=== PATIENT | female | born 1950 | race Caucasian/White ===

== ENCOUNTER 2017-01-19 22:22 | Inpatient (IN) | payer MEDICARE ==
[~2017-01-19] VITALS: Ht 167.6 cm; Wt 49.8 kg
[~2017-01-19 22:22] MED LIST: CHILD ASA81 MG PO; CIPROFLOXACN500 MG PO; GLUCOTROL EXTE2.5 M1 PO; LISINOPRIL5 MG PO; LOVASTATIN10 M1 PO; METFORMIN1000 MG PO; METFORMIN500 MG PO; PRAVASTATIN SOD10 MG PO
--- NOTE | 2017-01-19 22:50 | NUR ---
A/O F WITH STATED WEAKNESS NO FEELING WELL TODAY HX OF DIARRHEA YESTERDAY SELF MEDICATED WITH OTC MED WHICH RESOLVED D.PT'S TONGUE IS PINK AND DRY.DENIES PAIN NO DYSURIAS.
--- NOTE | 2017-01-19 23:20 | NUR ---
PT WAS WEAK WHEN ASSISTED BY NURSE TO BSC.PT VOIDED 300CC CLEAR YELLOW URINE
[2017-01-19 23:55] LABS: HEMATOCRIT 47.4 % (37.0-47.0); HEMOGLOBIN 14.7 g/dl (12.0-16.0); IMMATURE GRANULOCYTES 0.7 % (0.0-1.0); MEAN CELL VOLUME 88.8 fL CALC (80.0-100.0); MEAN CORPUSCULAR HGB 27.5 pG CALC (26.0-32.0); NEUT# 8.04 thou/uL (2.00-7.15); RED BLOOD COUNT 5.34 mill/uL (4.20-5.60); RED CELL DISTRI WIDTH 15.9 % (11.5-15.5)
[2017-01-20] VITALS (19 sets, daily range): BP systolic 90–152; BP diastolic 38–80
[2017-01-20 00:40] LABS: ALBUMIN 4.7 g/dL (3.2-5.0); ALKALINE PHOSPHATASE 96 u/l (38-126); ANION GAP 35 (6-22 (CALC)); BILIRUBIN, TOTAL 0.5 mg/dL (0.0-1.4); BUN 22 mg/dL (8-23); BUN/CREATININE RATIO 29 (12-20 (CALC)); CALCIUM 10.5 mg/dL (8.4-10.2); CHLORIDE 99 mmol/l (95-108); CREATININE 0.7 mg/dL (0.5-1.0); GFR > 60 ML/MIN (>=60 (CALC)); GFR FOR AFR.AMER. > 60 ML/MIN (>=60 (CALC)); POTASSIUM 4.6 mmol/l (3.5-5.1); SGOT/AST 14 u/l (9-36); SGPT/ALT 20 u/l (11-66); SODIUM 135 mmol/l (137-146); TOTAL PROTEIN 8.6 g/dL (6.3-8.2)
--- NOTE | 2017-01-20 00:40 | NUR ---
DR NOTIFIED OF CRITICAL LABS GLUCOSE 466/CO2 6.
[2017-01-20 00:43] LABS: CARBON DIOXIDE 6 mmol/l (22-30); GLUCOSE 466 mg/dL (82-115)
[2017-01-20 00:52] LABS: MYOGLOBIN 36 ng/mL (0 - 62)
--- NOTE | 2017-01-20 02:15 | NUR ---
PHONE REPORT TO NURSE ORTIZ IN ICU
--- NOTE | 2017-01-20 02:45 | NUR ---
FROM ER TO ICU BED7 VIA STRETCHER AND SENIOR IT ENGINEER, ON ROOM AIR, ACCOMPANIED BY Zora DARBY. PT ALERT AND ORIENTED X3; DENIES PAIN OR SOB, RESP EVEN AND UNLABORED, NO DISTRESS NOTED, ON INSULIN DRIP AT 4 UNITS/HR AND NS WITH BICARB AT 100 ML/HR, FAMILY AT BEDSIDE, ASSESSMENT COMPLETED AT THIS TIME, SEE INTERVENTIONS FOR DETAILS, SR ON MONITOR WITH FREQ PVC'S, HR 88, AFEBRILE, BP 123/54, SPO2 99% ON ROOM AIR, LUNGS ARE CLEAR ON AUSCULTATION, ABD IS SOFT WITH ACTIVE BS X4 QUAD, NO SKIN ISSUES OR EDEMA NOTED, WEAK PEDAL/RADIAL AND PAPER STACKER, JUAN HOSE ARE IN PLACE, EXPLAINED PLAN OF CARE, MED SCHEDULE, LABS, AND SAFETY MEASURES, PT VOICES UNDERSTANDING, CALL MORAN IS AT REACH, WILL CONTINUE TO MONITOR.
[2017-01-20 04:01] LABS: URINE BLOOD DIPSTICK TRACE-INTACT (NEGATIVE); URINE CLARITY CLEAR; URINE COLOR YELLOW; URINE GLUCOSE - DIPSTICK 500 mg/dL (NEGATIVE); URINE KETONE >=80 mg/dL (NEGATIVE); URINE LEUK ESTERASE NEGATIVE (NEGATIVE); URINE NITRITE - DIPSTICK NEGATIVE (Negative); URINE PH 5.5 (4.5-8.0); URINE PROTEIN - DIPSTICK 30 mg/dL (NEG-TRACE); URINE SPECIFIC GRAVITY 1.025; URINE UROBILINOGEN - DIPSTICK 0.2 E.U./dL (0.2)
[2017-01-20 04:03] LABS: URINE BILIRUBIN - DIPSTICK NEGATIVE (NEGATIVE)
[2017-01-20 04:05] LABS: BARBITURATES NEGATIVE (NEGATIVE); COCAINE NEGATIVE (NEGATIVE); METHADONE NEGATIVE (NEGATIVE); OXCYCODONE NEGATIVE (NEGATIVE); TETRAHYDROCANNABIONOL NEGATIVE (NEGATIVE); TRICYLIC ANTIDEPRESSANTS NEGATIVE (NEGATIVE)
[2017-01-20 04:07] LABS: URINE BACTERIA FEW hpf; URINE FINE GRAN CAST FEW lpf; URINE HYALINE CAST FEW lpf (NONE-RARE); URINE MUCUS FEW hpf (NONE-FEW); URINE RBC 0-2 RBC/hpf (0-5); URINE SQUAMOUS EPITHELIAL CELL MODERATE EPI/hpf (0-FEW); URINE WBC 0-2 WBC/hpf (0-5)
--- NOTE | 2017-01-20 04:48 | NUR ---
ASSISTED PT WITH BEDPAN, VOIDED 100ML OF CLEAR YELLOW URINE, NO BM NOTED, PT REFUSED TO USE BS, STATES "I FEEL WEAK." DENIES PAIN OR N/V, NO DIZZINES OR LIGHTHEADEDNESS VOICED, NO DISTRESS NOTED, HESITANT TO ANSWER QUESTIONS SINCE ADMISSION WITH GARBLE SPEECH, NO NEURO DEFICITS NOTED AT THIS TIME, INSULIN DRIP INFUSING PER PROTOCOL WITH NS AT 100 ML/HR, RESP ARE EVEN AND UNLABORED, PT APPEAR PALE, SKIN IS DRY AND WARM, DRY TONGUE NOTED, PT ASKING FOR WATER, PROVIDED ICE CHIPS, SR ON MONITOR, HR 71 WITH FREQ PVC'S, BP 134/56, SPO2 99% ON ROOM AIR, SAFETY MEASURES CONTINUE, CALL MORAN AT REACH, WILL CONTINUE TO MONITOR. PT TOLERATED ACTIVITY WELL.
--- NOTE | 2017-01-20 05:20 | NUR ---
NOTIFIED DR. WAGONER ABOUT ACCU CHECK/FINGERSTICK 188. LAB TENCH DRAWING LABS NOW.
--- NOTE | 2017-01-20 06:00 | NUR ---
FINGER STICK ACCU CHECK 121; INSULIN DRIP TITRATED TO 1 ML/HR WITH D5 1/2NS AT 150ML/HR, PT DENIES PAIN N/V OR DIZZINES AT THIS TIME, NO DISTRESS NOTED, VSS, AFEBRILE, WAITING FOR LAB RESULTS, WILL CONTINUE TO MONITOR.
[2017-01-20 06:11] LABS: ALBUMIN 3.7 g/dL (3.2-5.0); ALKALINE PHOSPHATASE 75 u/l (38-126); ANION GAP 16 (6-22 (CALC)); BILIRUBIN, TOTAL 0.4 mg/dL (0.0-1.4); BUN 20 mg/dL (8-23); BUN/CREATININE RATIO 36 (12-20 (CALC)); CALCIUM 9.8 mg/dL (8.4-10.2); CARBON DIOXIDE 21 mmol/l (22-30); CHLORIDE 106 mmol/l (95-108); CREATININE 0.6 mg/dL (0.5-1.0); GFR > 60 ML/MIN (>=60 (CALC)); GFR FOR AFR.AMER. > 60 ML/MIN (>=60 (CALC)); GLUCOSE 127 mg/dL (82-115); POTASSIUM 3.7 mmol/l (3.5-5.1); SGOT/AST 11 u/l (9-36); SGPT/ALT 31 u/l (11-66); SODIUM 140 mmol/l (137-146); TOTAL PROTEIN 6.9 g/dL (6.3-8.2)
--- NOTE | 2017-01-20 06:21 | NUR ---
NOTIFIED DR. WAGONER OF ANION GAP 16, WAITING FOR NEW ORDERS.
--- NOTE | 2017-01-20 06:45 | NUR ---
REPORT RECEIVED FROM MEHNAZ ORTIZ. PT RESTING WITH EYES CLOSED VSS, NO DISTRESS NOTED. CALL LIGHT WITHIN REACH. WILL CONTINUE TO MONITOR.
--- NOTE | 2017-01-20 09:40 | NUR ---
INSULIN DRIP TURNED OFF AT THIS TIME. PT RESTING, EDUCATED AGAIN ON MEDICATION AND SCHEDULE. PT STATES UNDERSTANDING. WILL CONTINUE TO RE-ASSESS IF NEEDED. ROOM DARKENED FOR PT REQUEST TO SLEEP.
[2017-01-20 10:00] LABS: ALBUMIN 3.2 g/dL (3.2-5.0); ALKALINE PHOSPHATASE 69 u/l (38-126); ANION GAP 18 (6-22 (CALC)); BILIRUBIN, TOTAL 0.3 mg/dL (0.0-1.4); BUN 18 mg/dL (8-23); BUN/CREATININE RATIO 34 (12-20 (CALC)); CALCIUM 9.1 mg/dL (8.4-10.2); CARBON DIOXIDE 19 mmol/l (22-30); CHLORIDE 104 mmol/l (95-108); CREATININE 0.5 mg/dL (0.5-1.0); GFR > 60 ML/MIN (>=60 (CALC)); GFR FOR AFR.AMER. > 60 ML/MIN (>=60 (CALC)); GLUCOSE 226 mg/dL (82-115); POTASSIUM 3.6 mmol/l (3.5-5.1); SGOT/AST 9 u/l (9-36); SGPT/ALT 27 u/l (11-66); SODIUM 137 mmol/l (137-146); TOTAL PROTEIN 6.1 g/dL (6.3-8.2)
--- NOTE | 2017-01-20 13:15 | NUR ---
REPORT GIVEN TO MEHNAZ STUBBS. PT TRANSFERRED TO ROOM 279. PT FAMILY IN ROOM AT THIS TIME.
--- NOTE | 2017-01-20 13:30 | NUR ---
PT TO ROOM VIA WC ACCOMPANIED BY STAFF AND FAMILY; PT MODERATE ASSIST TO BED; PT ORIENTED TO ROOM AND CALL SYSTEM; NO COMPLAINTS VOICED; CALL MORAN WITHIN REACH; WILL CONTINUE TO MONITOR.
--- NOTE | 2017-01-20 15:30 | NUR ---
PT RESTING WITH EYES CLOSED; NO S/SX OF DISTRESS NOTED; FAMILY AT BEDSIDE; CALL MORAN WITHIN REACH; WILL CONTINUE TO MONITOR.
--- NOTE | 2017-01-20 18:00 | NUR ---
PT AROUSED EASILY TO VERBAL STIMULI; ASSISTED WITH DINNER SET UP BY FAMILY; TELE MONITOR IN PLACE; CALL MORAN WITHIN REACH; WILL CONTINUE TO MONITOR.
--- NOTE | 2017-01-20 19:55 | NUR ---
PT APPEARS TO BE SLEEPING WITH EYES CLOSED, FAMILY AT BEDSIDE, AROUSES TO STIMULI, A/O X3, OFFERS NO COMPLAINTS AT THIS TIME, NO DISTRESS NOTED, ENCOURAGED TO CALL IF NEEDED, EXPLAINED PLAN OF CARE AND SAFETY MEASURES, WILL FOLLOW UP WITH MED SCHEDULE, ANSWERED FAMILY QUESTIONS ABOUT PT CARE, MEDS, AND LABS, VERBALIZED UNDERSTANDING, WILL CONTINUE TO MONITOR.
--- NOTE | 2017-01-21 00:10 | NUR ---
PT RESTING IN BED WITH EYES CLOSED, A/O X3, DENIES PAIN OR N/V OR OTHER DISCOMFORT, RESP ARE UNLABORED, OFFERED PO FLUIDS AND TOILETING, DENIES NEEDS AT THIS TIME, BED SIDE TABLE AT REACH WITH FRESH WATER, BSC AT BEDSIDE, ENCOURAGEDT TO CALL IF NEEDED, WILL CONTINUE TO MONITOR. PT IS ON TELE MONITORING. IV SITE IS PATENT, NO REDENSS OR EDEMA NOTED, FLUSHES WELL.
[2017-01-21 01:57] VITALS: BP 113/66
[2017-01-21 04:25] VITALS: BP 128/69
[2017-01-21 05:38] LABS: ANION GAP 15 (6-22 (CALC)); BUN 15 mg/dL (8-23); BUN/CREATININE RATIO 33 (12-20 (CALC)); CALCIUM 9.6 mg/dL (8.4-10.2); CARBON DIOXIDE 23 mmol/l (22-30); CHLORIDE 104 mmol/l (95-108); CREATININE 0.4 mg/dL (0.5-1.0); GFR > 60 ML/MIN (>=60 (CALC)); GFR FOR AFR.AMER. > 60 ML/MIN (>=60 (CALC)); GLUCOSE 227 mg/dL (82-115); SODIUM 137 mmol/l (137-146)
[2017-01-21 05:49] LABS: HEMATOCRIT 40.6 % (37.0-47.0); HEMOGLOBIN 13.4 g/dl (12.0-16.0); MEAN CELL VOLUME 84.8 fL CALC (80.0-100.0); RED BLOOD COUNT 4.79 mill/uL (4.20-5.60); RED CELL DISTRI WIDTH 15.6 % (11.5-15.5)
--- NOTE | 2017-01-21 06:00 | NUR ---
PT ASSISTED PT TO BSC, TOLERATED ACTIVITY WELL, DENIES PAIN OR NEEDS AT THIS TIME, RESP ARE EVEN AND UNLABORED, UNSTEADY GAIT NOTED, CALL MORAN IS AT REACH, WILL CONTINUE TO MONITOR.
[2017-01-21 07:27] VITALS: BP 130/55
--- NOTE | 2017-01-21 07:28 | NUR ---
BEDSIDE REPORT RECEIVED FROM MEHNAZ ORTIZ. PT SUPINE. DENIES PAIN. REPORTING OF CONCERNS ENCOURAGED. PLAN OF CARE DISCUSSED. CALL LIGHT REVIEWED AND IN REACH. PT STATES UNDERSTANDING.
[2017-01-21] MEDS ORDERED: LEVEMIR100 UNIT/M SC (09:33)
--- NOTE | 2017-01-21 11:28 | NUR ---
PT INSTRUCTED ON DRAWING UP INSULIN, RETURN DEMONSTRATION COMPLETED. PT AND FAMILY EDUCATED ON LEVEMIR INSULIN, S/S HYPERGLYCEMIA, HYPOGLYCEMIA, AND BLOOD SUGAR MONITORING. PT INSTRUCTED TO KEEP LOG OF BLOOD SUGARS FOR PRIMARY CARE PHYSICIAN AND OWN USE. PT STATES UNDERSTANDING.
[2017-01-21 11:41] VITALS: BP 98/51
--- NOTE | 2017-01-21 12:29 | NUR ---
Discharge instructions given. Patient verbalizes understanding of same. Discharged in stable condition via Wheelchair to Home with family. All belongings sent with pt.
== END 2017-01-21 12:22 | disposition home or self-care (01) | DRG 639 ==
LOC: ED 22:22 → ED-I 01-20 01:10 → ED 01-20 01:45 → ICU 01-20 01:46 → MS2 01-20 01:46
PROVIDERS: Emergency Medicine; Internal Medicine; Nurse Practitioner Family; ADMIT Internal Medicine; ATTEND Internal Medicine
DX: E13.10 Other specified diabetes mellitus with ketoacidosis without coma (principal); I10 Essential (primary) hypertension; E78.5 Hyperlipidemia, unspecified; Z91.14 Patient's other noncompliance with medication regimen; Z79.84 Long term (current) use of oral hypoglycemic drugs

== ENCOUNTER 2017-08-12 18:41 | Emergency (ER) | payer MEDICARE ==
[~2017-08-12] VITALS: Ht 167.6 cm; Wt 116.0 kg
[~2017-08-12 18:41] MED LIST changes: +ALENDRONATE70 MG PO; +LEVEMIR100 UNIT/M SC; +LIPITOR10 M1 PO; +LISINOPRIL2.5 MG PO; +MULTIVITAMI1 PO; +TRESIBA SC
[2017-08-12 20:17] LABS: HEMATOCRIT 35.1 % (37.0-47.0); HEMOGLOBIN 11.2 g/dl (12.0-16.0); IMMATURE GRANULOCYTES 0.3 % (0.0-1.0); MEAN CELL VOLUME 83.4 fL CALC (80.0-100.0); MEAN CORPUSCULAR HGB 26.6 pG CALC (26.0-32.0); MEAN CORPUSCULAR HGB CONC 31.9 g/L CALC (32.0-36.0); NEUT# 8.04 thou/uL (2.00-7.15); RED BLOOD COUNT 4.21 mill/uL (4.20-5.60)
[2017-08-12 20:56] LABS: URINE BILIRUBIN - DIPSTICK NEGATIVE (NEGATIVE); URINE BLOOD DIPSTICK SMALL (NEGATIVE); URINE CLARITY CLEAR; URINE COLOR YELLOW; URINE GLUCOSE - DIPSTICK NEGATIVE (NEGATIVE); URINE KETONE 15 mg/dL (NEGATIVE); URINE LEUK ESTERASE NEGATIVE (NEGATIVE); URINE NITRITE - DIPSTICK NEGATIVE (Negative); URINE PROTEIN - DIPSTICK 100 mg/dL (NEG-TRACE); URINE SPECIFIC GRAVITY 1.025; URINE UROBILINOGEN - DIPSTICK 0.2 E.U./dL (0.2)
[2017-08-12 20:59] LABS: ALBUMIN 3.6 g/dL (3.2-5.0); ALKALINE PHOSPHATASE 90 u/l (38-126); ANION GAP 17 (6-22 (CALC)); BILIRUBIN, TOTAL 0.3 mg/dL (0.0-1.4); BUN 11 mg/dL (8-23); CARBON DIOXIDE 23 mmol/l (22-30); CHLORIDE 107 mmol/l (95-108); POTASSIUM 3.9 mmol/l (3.5-5.1); SGOT/AST 36 u/l (9-36); SGPT/ALT 30 u/l (11-66); SODIUM 142 mmol/l (137-146); TOTAL PROTEIN 6.6 g/dL (6.3-8.2)
[2017-08-12 21:03] LABS: ACT PARTIAL THROMBO TIME 28.7 SECONDS (20.0-32.5); PROTHROMBIN TIME 11.1 SECONDS (9.0-12.5)
[2017-08-12 21:08] LABS: URINE SQUAMOUS EPITHELIAL CELL FEW EPI/hpf (0-FEW)
[2017-08-12 21:10] LABS: BUN/CREATININE RATIO 28 (12-20 (CALC)); CREATININE 0.4 mg/dL (0.5-1.0); GFR > 60 ML/MIN (>=60 (CALC)); GFR FOR AFR.AMER. > 60 ML/MIN (>=60 (CALC))
[2017-08-12 21:12] LABS: MYOGLOBIN 222 ng/mL (0 - 62)
[2017-08-12 23:16] VITALS: BP 154/72
== END 2017-08-12 23:23 | disposition short-term general hospital (02) ==
LOC: ED 18:41
PROVIDERS: Emergency Medicine
PROC: 0T9B70Z Drainage of Bladder with Drainage Device, Via Natural or Artificial Opening (ICD-10-PCS; principal; 2017-08-12)
DX: I63.9 Cerebral infarction, unspecified (principal); R29.704 NIHSS score 4; R53.1 Weakness

== ENCOUNTER 2021-02-28 17:46 | Emergency (ER) | payer MEDICARE ==
[~2021-02-28] VITALS: Ht 167.6 cm; Wt 72.0 kg
[2021-02-28 18:56] LABS: HEMATOCRIT 39.5 % (37.0-47.0); HEMOGLOBIN 12.5 g/dl (12.0-16.0); IMMATURE GRANULOCYTES 0.1 % (0.0-5.0); MEAN CELL VOLUME 88.2 fL CALC (80.0-100.0); MEAN CORPUSCULAR HGB 27.9 pG CALC (26.0-32.0); MEAN CORPUSCULAR HGB CONC 31.6 g/dL CAL (32.0-36.0); NEUT# 7.51 thou/uL (2.00-7.15); RED BLOOD COUNT 4.48 mill/uL (4.20-5.60); RED CELL DISTRI WIDTH 16.9 % (11.5-15.5)
[2021-02-28 19:12] LABS: ALBUMIN 3.9 g/dL (3.2-5.0); ALKALINE PHOSPHATASE 105 u/l (38-126); ANION GAP 11 (6-22 (CALC)); BUN 32 mg/dL (8-23); BUN/CREATININE RATIO 45 (12-20 (CALC)); CARBON DIOXIDE 29 mmol/l (22-30); CHLORIDE 101 mmol/l (95-108); CREATININE 0.7 mg/dL (0.5-1.0); GFR > 60 ML/MIN (>=60 (CALC)); GFR FOR AFR.AMER. > 60 ML/MIN (>=60 (CALC)); SGOT/AST 37 u/l (9-36); SODIUM 137 mmol/l (137-146)
[2021-02-28 19:13] LABS: BILIRUBIN, TOTAL 0.5 mg/dL (0.0-1.4)
[2021-02-28 20:11] VITALS: BP 143/67
== END 2021-02-28 20:10 | disposition short-term general hospital (02) ==
LOC: ED 17:46
PROVIDERS: Family Medicine
PROC: 0T9B70Z Drainage of Bladder with Drainage Device, Via Natural or Artificial Opening (ICD-10-PCS; principal; 2021-02-28)
DX: S72.142A Displaced intertrochanteric fracture of left femur, initial encounter for closed fracture (principal); E11.9 Type 2 diabetes mellitus without complications; W19.XXXA Unspecified fall, initial encounter; Z79.84 Long term (current) use of oral hypoglycemic drugs

== ENCOUNTER 2023-06-25 16:17 | Emergency (ER) | payer MEDICARE, MEDICAID ==
[~2023-06-25] VITALS: Ht 167.6 cm; Wt 50.7 kg
[2023-06-25 17:11] VITALS: BP 168/77
[2023-06-25 17:32] VITALS: BP 147/67
[2023-06-25 17:36] LABS: BASO% 0.7 % (0-3); EOS% 3.5 % (0-8); HEMOGLOBIN 13.2 g/dl (12.0-16.0); IMMATURE GRANULOCYTES 0.4 % (0.0-5.0); LYMPH% 21.2 % (15-41); MEAN CELL VOLUME 88.4 fL CALC (80.0-100.0); MEAN CORPUSCULAR HGB 28.4 pG CALC (26.0-32.0); MEAN CORPUSCULAR HGB CONC 32.2 g/dL CAL (32.0-36.0); MONO% 9.9 % (2-13); NEUT# 4.9 thou/uL (2.00-7.15); NEUT% 64.3 % (42-76); RED BLOOD COUNT 4.64 mill/uL (4.20-5.60); RED CELL DISTRI WIDTH 14.4 % (11.5-15.5)
[2023-06-25 18:00] VITALS: BP 135/67
[2023-06-25 18:08] LABS: ALBUMIN 4.2 g/dL (3.2-5.0); ALKALINE PHOSPHATASE 81 u/l (38-126); ANION GAP 16 (6-22 (CALC)); BILIRUBIN, TOTAL 0.4 mg/dL (0.02-1.3); BUN 42 mg/dL (8-23); BUN/CREATININE RATIO 78 (12-20 (CALC)); CARBON DIOXIDE 24 mmol/l (22-30); CHLORIDE 96 mmol/l (95-108); CREATININE 0.5 mg/dL (0.5-1.0); GFR FOR AFR.AMER. > 60 ML/MIN (>=60 (CALC)); GFR OTHER RACES > 60 ML/MIN (>=60 (CALC)); POTASSIUM 4.5 mmol/l (3.5-5.1); SGOT/AST 40 u/l (9-36); SODIUM 131 mmol/l (137-146); TOTAL PROTEIN 7.7 g/dL (6.3-8.2)
[2023-06-25 18:30] VITALS: BP 154/70
[2023-06-25 19:00] VITALS: BP 147/77
[2023-06-25 19:03] VITALS: BP 147/77
== END 2023-06-25 19:32 | disposition home or self-care (01) ==
LOC: ED 16:17
PROVIDERS: Family Medicine
DX: E11.65 Type 2 diabetes mellitus with hyperglycemia (principal); Z79.84 Long term (current) use of oral hypoglycemic drugs

== ENCOUNTER 2024-06-05 16:56 | Observation (INO) | payer MEDICARE, MEDICAID ==
[~2024-06-05] VITALS: Ht 167.6 cm; Wt 51.9 kg
[2024-06-05] VITALS (24 sets, daily range): BP systolic 126–203; BP diastolic 50–88
[~2024-06-05 16:56] MED LIST changes: +LEVOFLOXACIN500MG PO
--- NOTE | 2024-06-05 16:56 | NUR ---
PT TO ER ROOM 2 VIA EMS.
[2024-06-05] MEDS ORDERED: ISOVUE-300 (Iopamidol) 100 ML SDV IV ONE (17:05)
[2024-06-05] MEDS ORDERED: SODIUM CHLORIDE 0.9% 1,000 ML IV ONE (17:05)
[2024-06-05 17:30] LABS: BASO% 0.2 % (0-3); EOS% 0.4 % (0-8); HEMATOCRIT 44.4 % (37.0-47.0); HEMOGLOBIN 13.9 g/dl (12.0-16.0); IMMATURE GRANULOCYTES 0.1 % (0.0-5.0); LYMPH% 6.9 % (15-41); MEAN CELL VOLUME 89.7 fL CALC (80.0-100.0); MEAN CORPUSCULAR HGB 28.1 pG CALC (26.0-32.0); MEAN CORPUSCULAR HGB CONC 31.3 g/dL CAL (32.0-36.0); NEUT# 11.64 thou/uL (2.00-7.15); NEUT% 82.4 % (42-76); RED BLOOD COUNT 4.95 mill/uL (4.20-5.60); RED CELL DISTRI WIDTH 14.1 % (11.5-15.5)
[2024-06-05 17:45] LABS: ALBUMIN 4.3 g/dL (3.2-5.0); BILIRUBIN, TOTAL 0.4 mg/dL (0.02-1.3); CREATININE 0.6 mg/dL (0.5-1.0); POTASSIUM 3.8 mmol/l (3.5-5.1); TOTAL PROTEIN 8.2 g/dL (6.3-8.2)
--- NOTE | 2024-06-05 18:46 | NUR ---
PATIENT RETURNS FROM RADIOLOGY, DAUGHTER REMAINS BEDSIDE
--- NOTE | 2024-06-05 19:00 | NUR ---
REPORT RECEIVED FROM MEHNAZ ZIMMER AND CARE RESUMED BY THIS NURSE AT THIS TIME. CALL LIGHT WITHIN REACH AND PT AWAITING RESULTS. DAUGHTER AT BEDSIDE.
--- NOTE | 2024-06-05 20:00 | NUR ---
STRAIGHT CATH COMPLETED AND URINE COLLECTED. PT TOLERATED WELL. CALL LIGHT WITHIN REACH.
[2024-06-05 20:52] LABS: URINE BILIRUBIN - DIPSTICK Negative (NEGATIVE); URINE BLOOD DIPSTICK Negative (NEGATIVE); URINE GLUCOSE - DIPSTICK Negative (NEGATIVE); URINE KETONE Negative (NEGATIVE); URINE LEUK ESTERASE Negative (NEGATIVE); URINE NITRITE - DIPSTICK Negative (Negative); URINE PROTEIN - DIPSTICK >=300 mg/dL (NEG-TRACE); URINE SPECIFIC GRAVITY 1.015; URINE UROBILINOGEN - DIPSTICK 0.2 E.U./dL (0.2)
[2024-06-05 20:53] LABS: URINE COLOR Straw
[2024-06-05 21:00] LABS: URINE TRANSITIONAL EPI. CELLS FEW hpf
--- NOTE | 2024-06-05 21:09 | NUR ---
PT SITTING IN RM AWAITING RESULTS AT THIS TIME. CALL LIGHT WITHIN REACH AND PT HAS NO NEEDS OR CONCERNS AT THIS TIME.
[2024-06-05] MEDS ORDERED: MORPHINE SULFATE 4 MG/ML VIAL IV ONE (21:25)
--- NOTE | 2024-06-05 22:15 | NUR ---
PT SITTING IN RM AWAITING ADMIT AT THIS TIME. CALL LIGHT WITHIN REACH AND PT HAS NO NEEDS OR CONCERNS AT THIS TIME.
--- NOTE | 2024-06-05 23:19 | NUR ---
PT RESTING IN RM AWAITING ADMIT AT THIS TIME. CALL LIGHT WITHIN REACH AND PT HAS NO NEEDS OR CONCERNS AT THIS TIME.
[2024-06-06] VITALS (14 sets, daily range): BP systolic 139–187; BP diastolic 53–80
--- NOTE | 2024-06-06 00:55 | NUR ---
GAVE REPORT TO MEHNAZ COLE AND PT TO BE TRANSPORTED TO MED SURG RM 270. CALL LIGHT WITHIN REACH AND PT HAS NO NEEDS OR CONCERNS.
[2024-06-06] MEDS ORDERED: CLARIFY DOSE PO PRN (01:10)
--- NOTE | 2024-06-06 01:15 | NUR ---
Admission Note Report Given to: MEHNAZ COLE Transported by: Wheelchair X Stretcher Transported with: X Nurse Transporter X Patent IV O2 First Sampler Location: ICU X MS2
[2024-06-06] MEDS ORDERED: oxyCODONE HCL 5 MG/TAB PO PRN (01:30)
--- NOTE | 2024-06-06 02:55 | NUR ---
RECEIVED REPORT FROM NURSE ED NURSE DOUG, TRANSPORTED VIA BED, ARRIVE MS UNIT AT 0120, PATIENT IS ALERT ORIENTED X 3 ABLE TO MAKE NEEDS KNOWN, STATED PAIN RELIEF FROM PREVIOUS MED GIVEN, PATINET HAD A LARGE INCONTINENCE OF URINE, PERICARE PROVIDED, NOTED PROLAPSE VAGINA, PATIENT STATED HAD A PROLAPSE, SCD IN PLACED, HEELS OFFLOADED, CALL LIGHT IN REACHED, BED ALARM IN PLACED, ADMISSION ASSESSMENT COMPLETED.
--- NOTE | 2024-06-06 05:13 | NUR ---
PATIENT NOT IN DISTRESS, BREATHING UNLABORED,SCD AND BED ALARM IN PLACED.
[2024-06-06] MEDS ORDERED: ACETAMINOPHEN 500 MG TAB PO SCH (06:00)
[2024-06-06] MEDS ORDERED: DOXYCYCLINE HYCLATE 100 MG in SODIUM CHLORIDE 0.9% 100 ML IV SCH (09:00)
[2024-06-06] MEDS ORDERED: DEXTROSE 250 ML IV PRN (14:00)
[2024-06-06] MEDS ORDERED: LISINOPRIL 2.5 MG TAB PO SCH (15:00)
[2024-06-06] MEDS ORDERED: INSULIN LISPRO 100 UNITS/ML ML SC SCH (17:00)
--- NOTE | 2024-06-06 20:00 | NUR ---
RECEIVED REPORT FROM DAY NURSE, PATIENT AWAKE, FAMILY IN ROOM, ALERT ORIENTED, C/O HEADACHE, WILL MEDICATE, PATINET IV ON RAC PATENT FLSUHES WELL, BREATHING UNLABORED, EDUCATED ON THE PLAN TO DO ULTRASOUND ABDOMEN TOMORROW AND THE PREPARATION, PATIENT VERBALIZED UNDERSTANING, SCD IN PLACED, CALL LIGHTIN REACHED, BED ALARM IN PLACED.
--- NOTE | 2024-06-07 | NUR ---
PATIENT NOW NPO, FOOD AND FLUID REMOVED AT BEDSIDE, PATIENT TURNED REPOSITIOND RT SIDE, CALL LIGHT IN REACHED, BED ALARM IN PLACED.
[2024-06-07 05:15] VITALS: BP 150/71
[2024-06-07 05:34] LABS: BASO% 0.4 % (0-3); EOS% 1.2 % (0-8); HEMATOCRIT 41.1 % (37.0-47.0); HEMOGLOBIN 13.1 g/dl (12.0-16.0); IMMATURE GRANULOCYTES 0.2 % (0.0-5.0); LYMPH% 19.5 % (15-41); MEAN CELL VOLUME 90.3 fL CALC (80.0-100.0); MEAN CORPUSCULAR HGB 28.8 pG CALC (26.0-32.0); MEAN CORPUSCULAR HGB CONC 31.9 g/dL CAL (32.0-36.0); MONO% 13.3 % (2-13); NEUT# 6.38 thou/uL (2.00-7.15); NEUT% 65.4 % (42-76); RED BLOOD COUNT 4.55 mill/uL (4.20-5.60); RED CELL DISTRI WIDTH 14.4 % (11.5-15.5)
[2024-06-07 05:41] VITALS: BP 150/71
[2024-06-07 05:46] LABS: BILIRUBIN, TOTAL 0.5 mg/dL (0.02-1.3); CREATININE 0.6 mg/dL (0.5-1.0); MAGNESIUM 1.8 mg/dL (1.6-2.3); POTASSIUM 4.1 mmol/l (3.5-5.1)
[2024-06-07 05:49] LABS: TOTAL PROTEIN 6.3 g/dL (6.3-8.2)
--- NOTE | 2024-06-07 06:03 | NUR ---
PATIENT HAD A LARGE INCONTINENCE OF URINE, INCONTINENT CARE PROVIDE, PATIENT REPOSITIONED, CALL LIGHT IN REACHED, BED ALARM IN PLACED.
[2024-06-07 07:27] VITALS: BP 123/51
--- NOTE | 2024-06-07 07:45 | NUR ---
PT ASSISTED FROM THE BED TO THE , PT TRANSPORTED TO ULTRASOUND
--- NOTE | 2024-06-07 08:10 | NUR ---
PT RETURNED TO THE UNIT FROM ULTRASOUND VIA WC, PT ASSISTED BACK TO THE BED FROM THE WC, PT TOLERATED WELL, SAFETY MEASURES REINFORCED, CALL MORAN WITHIN REACH
--- NOTE | 2024-06-07 12:00 | NUR ---
PT SITTING UP IN THE RECLINER EATING LUNCH, PT TOLERATING WELL, PT DENIES ANY NEEDS AT THIS TIME, CALL MORAN WITHIN REACH
[2024-06-07 15:42] VITALS: BP 132/59
--- NOTE | 2024-06-07 16:00 | NUR ---
PT ASSISTED FROM THE RECLINER TO THE BED, PT AMBULATES WITH A SLOW UNSTEADY GAIT, PT TOLERATED WELL, PT REMINDED TO CALL FOR ASSISTANCE, PT VERBALIZED UNDERSTANDING, CALL MORAN WITHIN REACH
[2024-06-07 19:32] VITALS: BP 159/77
[2024-06-07 20:21] VITALS: BP 159/77
--- NOTE | 2024-06-07 20:45 | NUR ---
PT RESTING IN BED NO DISTRESS NOTED. VS WNL ON RA LUNGS CLEAR NO PAIN REPORTED. IV FLUSHED WORKING PROPERLY. PT IS NOTED TO HAVE CONTRACTED FINGERS, LEFT GREATER THAN THE RIGHT HAND. PT ABLE TO MOVE ALL EXTREMITIES. SKIN INTACT NO EDEMA NOTED. WHEN CHECKING PT BUTTOCKS AREA BRIEF CHANGED DUE TO A INCONTINENCE EPISODE NO FOUL ODOR NOTED. ORAL FLUIDS PROVIDED. CALL LIGHT WITHIN REACH. PLAN OF CARE ONGOING.
--- NOTE | 2024-06-08 00:45 | NUR ---
PT SLEEPING NO DISTRESS NOTED ON EXAM. CALL LIGHT WITHIN REACH. PLAN OF CARE ONGOING.
--- NOTE | 2024-06-08 05:14 | NUR ---
PT SLEEPING NO DISTRESS NOTED BREATHING EVENLY. PT AWAKE ON AND OFF FOR MOST OF THE NIGHT. PT REFUSES TO LET STAFF TURN OFF OVER HEAD LIGHT. CALL LIGHT WITHIN REACH. PLAN OF CARE ONGOING.
--- NOTE | 2024-06-08 07:25 | NUR ---
PATIENT LYING IN BED WITH EYES CLOSED RESTING. BREATHING UNLABORED ON ROOM AIR. IV IN RAC SL;SITE CLEAN AND INTACT. NO SIGNS OF DISTRESS NOTED OR PAIN. BED IN LOWEST POSITION. CALL LIGHT WITHIN REACH. NO NEEDS AT THIS TIME. POC ONGOING.
[2024-06-08 07:35] VITALS: BP 156/71
[2024-06-08 08:12] VITALS: BP 156/71
[2024-06-08 08:41] LABS: BASO% 0.4 % (0-3); EOS% 0.7 % (0-8); HEMATOCRIT 41.8 % (37.0-47.0); HEMOGLOBIN 13.3 g/dl (12.0-16.0); IMMATURE GRANULOCYTES 0.2 % (0.0-5.0); MEAN CELL VOLUME 88.9 fL CALC (80.0-100.0); MEAN CORPUSCULAR HGB 28.3 pG CALC (26.0-32.0); MEAN CORPUSCULAR HGB CONC 31.8 g/dL CAL (32.0-36.0); NEUT# 9.44 thou/uL (2.00-7.15); NEUT% 77.7 % (42-76); RED BLOOD COUNT 4.7 mill/uL (4.20-5.60); RED CELL DISTRI WIDTH 14.2 % (11.5-15.5)
[2024-06-08 08:54] LABS: ALBUMIN 3.1 g/dL (3.2-5.0); BILIRUBIN, TOTAL 0.6 mg/dL (0.02-1.3); CREATININE 0.6 mg/dL (0.5-1.0); MAGNESIUM 1.8 mg/dL (1.6-2.3); POTASSIUM 4.4 mmol/l (3.5-5.1); TOTAL PROTEIN 6.5 g/dL (6.3-8.2)
[2024-06-08] MEDS ORDERED: Polyethylene Glycol 3350 17 GM/PKT PO SCH (09:00)
--- NOTE | 2024-06-08 12:18 | NUR ---
PATIENT SITTING UP IN BED EATING LUNCH. BREATHING UNLABORED ON ROOM AIR. IV IN RFA SL;SITE CLEAN AND INTACT. PT DENIES ANY PAIN OR N/D/V AT THIS TIME. REQUESTED A SODA. NO OTHER NEEDS AT THIS TIME. CALL LIGHT WITHIN REACH. BED IN LOWEST POSITION WITH BED ALARM ACTIVE. POC ONGOING.
[2024-06-08] MEDS ORDERED: INSULIN GLARGINE 100 UNITS/ML SC SCH (12:30)
--- NOTE | 2024-06-08 13:22 | NUR ---
Discharge instructions given. Patient verbalizes understanding of same. Discharged in stable condition via Wheelchair to *Other with staff. All belongings sent with pt.
== END 2024-06-08 13:20 ==
LOC: ED 16:56 → ED-I 22:00 → ED 22:31 → ED-I 22:32 → MS2 22:32
PROVIDERS: Nurse Practitioner; Nurse Practitioner Family; ADMIT Internal Medicine; ATTEND Internal Medicine
DX: R53.1 Weakness (principal); M25.552 Pain in left hip; I10 Essential (primary) hypertension; E11.9 Type 2 diabetes mellitus without complications; K80.20 Calculus of gallbladder without cholecystitis without obstruction; I69.954 Hemiplegia and hemiparesis following unspecified cerebrovascular disease affecting left non-dominant side; F03.90 Unspecified dementia, unspecified severity, without behavioral disturbance, psychotic disturbance, mood disturbance, and anxiety; E78.5 Hyperlipidemia, unspecified; Z79.84 Long term (current) use of oral hypoglycemic drugs; Z20.822 Contact with and (suspected) exposure to COVID-19
CPT/HCPCS: J0696; J1815; Q9967

== ENCOUNTER 2024-09-01 09:21 | Emergency (ER) | payer MEDICARE, MEDICAID ==
[~2024-09-01] VITALS: Ht 167.6 cm; Wt 82.0 kg
[2024-09-01] VITALS (10 sets, daily range): BP systolic 129–153; BP diastolic 58–71
[2024-09-01 10:26] LABS: BASO% 0.5 % (0-3); EOS% 3.7 % (0-8); HEMATOCRIT 40.2 % (37.0-47.0); HEMOGLOBIN 12.8 g/dl (12.0-16.0); IMMATURE GRANULOCYTES 0.1 % (0.0-5.0); LYMPH% 15.4 % (15-41); MEAN CELL VOLUME 89.7 fL CALC (80.0-100.0); MEAN CORPUSCULAR HGB 28.6 pG CALC (26.0-32.0); MEAN CORPUSCULAR HGB CONC 31.8 g/dL CAL (32.0-36.0); MONO% 10.3 % (2-13); NEUT# 5.65 thou/uL (2.00-7.15); RED BLOOD COUNT 4.48 mill/uL (4.20-5.60); RED CELL DISTRI WIDTH 15.9 % (11.5-15.5)
[2024-09-01 10:44] LABS: BILIRUBIN, TOTAL 0.4 mg/dL (0.02-1.3); CREATININE 0.5 mg/dL (0.5-1.0); POTASSIUM 4.2 mmol/l (3.5-5.1); TOTAL PROTEIN 7.5 g/dL (6.3-8.2)
[2024-09-01 10:52] LABS: ALBUMIN 3.9 g/dL (3.2-5.0)
== END 2024-09-01 12:30 | disposition home or self-care (01) ==
LOC: ED 09:21
PROVIDERS: Family Medicine
DX: M25.552 Pain in left hip (principal); E11.9 Type 2 diabetes mellitus without complications; I10 Essential (primary) hypertension; J44.9 Chronic obstructive pulmonary disease, unspecified; F03.90 Unspecified dementia, unspecified severity, without behavioral disturbance, psychotic disturbance, mood disturbance, and anxiety; W18.39XA Other fall on same level, initial encounter; Y92.003 Bedroom of unspecified non-institutional (private) residence as the place of occurrence of the external cause; Z86.73 Personal history of transient ischemic attack (TIA), and cerebral infarction without residual deficits; Z79.84 Long term (current) use of oral hypoglycemic drugs